=== PATIENT | female | born 1995 | race Caucasian/White ===

== ENCOUNTER 2024-05-08 13:11 | Emergency (ER) | payer OTHER ==
[~2024-05-08] VITALS: Ht 160 cm; Wt 55.2 kg
[2024-05-08 13:11] VITALS: BP 120/66; TEMP 98.1; O2SAT 97
[2024-05-08] MEDS: RABIES VACCINE HUMAN 2.5 INTERNATIONAL UNITS/ML VIAL IM ONE (16:13)
[2024-05-08] MEDS: RABIES IMMUNE GLOBULIN 1500 INTERNATIONAL UNIT/5ML VIAL IM.IMMUN ONE (16:14)
== END 2024-05-08 16:46 | disposition home or self-care (01) ==
LOC: M ED 13:11
DX: Z20.3 Contact with and (suspected) exposure to rabies (principal); Z23 Encounter for immunization